=== PATIENT | male | born 1965 | race Caucasian/White ===

== ENCOUNTER → 2019-11-29 | Outpatient (CLI) | payer BC ==
[2014-02-07 18:30] VITALS: BP 163/92
[~2019-11-29] MED LIST: CETIRIZINE; EPI EZ PEN1 MG/ML IM; MEDROL 4MG DOSPA4 MG PO; PRILOSEC 20MG20 MG PO; ZANTAC150 MG PO; ZYRTEC10 MG PO
== END ==
LOC: LAB 14:32
DX: J02.9 Acute pharyngitis, unspecified (principal); J34.89 Other specified disorders of nose and nasal sinuses; R10.9 Unspecified abdominal pain; Z20.828 Contact with and (suspected) exposure to other viral communicable diseases

== ENCOUNTER → 2021-07-09 | Outpatient (CLI) | payer BC ==
[2021-07-09 10:15] LABS: BASO # 0.06 K/mm3 (0.02-0.10); EOS # 0.41 K/mm3 (0.04-0.40); EOS % 4.7 % (0.0-4.0); HEMATOCRIT 49.2 % (42.0-52.0); HEMOGLOBIN 16.1 g/dL (13.5-18.0); LYMPH# 2.93 K/mm3 (1.50-4.00); MEAN CELL VOLUME 87 fl (78-100); MEAN CORPUSCULAR HEMOGLOBIN 28 pg (27-31); MEAN CORPUSCULAR HGB CONC 33 g/dL (33-37); MEAN PLATELET VOLUME 9.7 fl (7.4-10.4); MONO # 0.84 K/mm3 (0.20-0.80); NEU # 4.54 K/mm3 (1.40-6.50); PLATELET COUNT 266 K/mm3 (130-400); RED BLOOD COUNT 5.66 M/mm3 (4.20-5.60); RED CELL DISTRIBUTION WIDTH 13.3 % (11.5-14.5); WHITE BLOOD COUNT 8.8 K/mm3 (4.8-10.8)
[2021-07-09 10:43] LABS: POTASSIUM 4.1 mmol/L (3.5-5.1)
[2021-07-09 10:44] LABS: ALBUMIN 4.4 g/dL (3.5-5.0)
[2021-07-09 10:45] LABS: CALCIUM 9.3 mg/dL (8.3-10.5)
[2021-07-09 10:46] LABS: TOTAL PROTEIN 7.9 g/dL (6.4-8.3)
[2021-07-09 10:48] LABS: TOTAL BILIRUBIN 0.6 mg/dL (0.2-1.2)
== END ==
LOC: LAB 10:01
PROVIDERS: Internal Medicine
DX: Z12.5 Encounter for screening for malignant neoplasm of prostate (principal); Z00.00 Encounter for general adult medical examination without abnormal findings; L72.3 Sebaceous cyst; Z91.018 Allergy to other foods

== ENCOUNTER → 2021-07-23 | Outpatient (CLI) | payer BC ==
[2021-07-23 17:48] LABS: FOLLICLE STIMULATING HORMONE 2.8 mIU/mL (1.0-12.0); LUTENIZING HORMONE 2.5 mIU/mL (0.6-12.1); PROLACTIN AMS 7.5 ng/mL (3.5-19.4)
== END ==
LOC: LAB 08:13
PROVIDERS: Internal Medicine
DX: R79.89 Other specified abnormal findings of blood chemistry (principal)

== ENCOUNTER → 2021-08-05 | Day surgery (SDC) | payer BC | LOC: MSO 09:26 | DX: L72.3 Sebaceous cyst (principal) ==

== ENCOUNTER → 2021-10-30 | Outpatient (CLI) | payer BC ==
[2021-10-30 09:37] LABS: POTASSIUM 4.3 mmol/L (3.5-5.1)
[2021-10-30 09:38] LABS: ALBUMIN 4.3 g/dL (3.5-5.0)
[2021-10-30 09:40] LABS: TOTAL PROTEIN 7.3 g/dL (6.4-8.3)
[2021-10-30 09:42] LABS: TOTAL BILIRUBIN 0.8 mg/dL (0.2-1.2)
[2021-10-30 21:49] LABS: FOLLICLE STIMULATING HORMONE 3.1 mIU/mL (1.0-12.0); LUTENIZING HORMONE 2.1 mIU/mL (0.6-12.1); PROLACTIN AMS 6.8 ng/mL (3.5-19.4)
== END ==
LOC: LAB 08:56
PROVIDERS: Internal Medicine
DX: E78.2 Mixed hyperlipidemia (principal)